=== PATIENT | male | born 1965 | race Caucasian/White ===

== ENCOUNTER 2025-02-05 13:39 | Day surgery (SDC) | payer OTHER ==
[2025-02-05] MEDS ORDERED: Sodium Bicarbonate 2.5 MEQ/5 ML SDV ONE (13:48)
[2025-02-05 14:52] VITALS: BP 135/64; TEMP 97.8
[2025-02-05 19:45] LABS: BF Segmented Neutrophils 8 %
[2025-02-05 19:46] LABS: Cell Count Non Hematic 72 %
== END 2025-02-05 15:30 | disposition home or self-care (01) ==
LOC: CSHULT 13:39
PROVIDERS: ATTEND Pediatrics
PROC: 0W9G30Z Drainage of Peritoneal Cavity with Drainage Device, Percutaneous Approach (ICD-10-PCS; principal; 2025-02-05)
DX: K72.90 Hepatic failure, unspecified without coma (principal); K76.82 Hepatic encephalopathy; K74.60 Unspecified cirrhosis of liver; R18.8 Other ascites; I10 Essential (primary) hypertension; E11.9 Type 2 diabetes mellitus without complications; Z90.49 Acquired absence of other specified parts of digestive tract; Z98.890 Other specified postprocedural states; Z79.4 Long term (current) use of insulin
CPT/HCPCS: 49083; 82042; 84157; 89051; P9047

== ENCOUNTER 2025-02-18 13:33 | Day surgery (SDC) | payer OTHER ==
[2025-02-18] MEDS ORDERED: Sodium Bicarbonate 2.5 MEQ/5 ML SDV ONE (13:55)
[2025-02-18 14:26] VITALS: BP 126/68; TEMP 98.2
[2025-02-18 16:14] LABS: BF Segmented Neutrophils 14 %
== END 2025-02-18 15:02 | disposition home or self-care (01) ==
LOC: CSHULT 13:33
PROVIDERS: ATTEND Internal Medicine Gastroenterology
PROC: 0W9G30Z Drainage of Peritoneal Cavity with Drainage Device, Percutaneous Approach (ICD-10-PCS; principal; 2025-02-18)
DX: K72.90 Hepatic failure, unspecified without coma (principal); K76.82 Hepatic encephalopathy; K74.60 Unspecified cirrhosis of liver; R18.8 Other ascites; I10 Essential (primary) hypertension; E11.9 Type 2 diabetes mellitus without complications; Z90.49 Acquired absence of other specified parts of digestive tract; Z98.890 Other specified postprocedural states; Z79.85 Long-term (current) use of injectable non-insulin antidiabetic drugs; Z79.899 Other long term (current) drug therapy
CPT/HCPCS: 49083; 82042; 84157; 89051; P9047

== ENCOUNTER 2025-02-25 10:16 | Day surgery (SDC) | payer OTHER ==
[2025-02-25] MEDS ORDERED: Sodium Bicarbonate 2.5 MEQ/5 ML SDV ONE (10:39)
[2025-02-25 11:04] VITALS: BP 178/84
[2025-02-25 14:32] LABS: BF Segmented Neutrophils 11 %; Cell Count Non Hematic 4 %
== END 2025-02-25 12:25 | disposition home or self-care (01) ==
LOC: CSHULT 10:16
PROVIDERS: ATTEND Internal Medicine Gastroenterology
DX: K72.90 Hepatic failure, unspecified without coma (principal); K76.82 Hepatic encephalopathy; R18.8 Other ascites; K74.60 Unspecified cirrhosis of liver; I10 Essential (primary) hypertension; E11.9 Type 2 diabetes mellitus without complications; E78.5 Hyperlipidemia, unspecified; Z90.49 Acquired absence of other specified parts of digestive tract; Z98.890 Other specified postprocedural states; Z79.4 Long term (current) use of insulin; Z79.85 Long-term (current) use of injectable non-insulin antidiabetic drugs
CPT/HCPCS: 49083; 82042; 84157; 89051; P9047